=== PATIENT | female | born 1970 | race African-American/Black ===

== ENCOUNTER 2016-12-21 17:01 | Inpatient (IN) | payer MEDICAID ==
[~2016-12-21] VITALS: Ht 167.6 cm; Wt 83.9 kg
[~2016-12-21 17:01] MED LIST: IOHEXOL-300 100 ML BOTTLE ONE; SODIUM CHLORIDE 0.9% 10ML VIAL ONE
[2016-12-21] MEDS ORDERED: SODIUM CHLORIDE 0.9% 1,000 ML IV ONE (18:04)
[2016-12-21] MEDS ORDERED: ONDANSETRON HCL 4MG/2ML VIAL IV STA (18:04)
[2016-12-21] MEDS ORDERED: FAMOTIDINE 20MG/2ML VIAL IV STA (18:04)
[2016-12-21] MEDS ORDERED: MORPHINE SULFATE 4 MG/ML CPJ (NOT FOR IM USE) IV ONE (18:15)
[2016-12-21] MEDS ORDERED: LORAZEPAM 2MG/ML CPJ IV ONE (18:15)
[2016-12-21] MEDS ORDERED: MORPHINE SULFATE 4 MG/ML CPJ (NOT FOR IM USE) IV NR (18:15)
[2016-12-21] MEDS ORDERED: FOLIC ACID 1 MG, THIAMINE HCL 100 MG, MVI, ADULT NO.1 10 ML in DEXTROSE 5% WATER 1,000 ML IV ONE ×4 (18:15)
[2016-12-21] MEDS ORDERED: LORAZEPAM 2MG/ML CPJ IV NR (18:15)
[2016-12-21 18:23] LABS: BASOPHILS % 1.2 % (0.0-2.0); EOSINOPHILS % 0.1 % (0.0-5.0); HEMATOCRIT. 33.3 % (36.0-48.0); HEMOGLOBIN. 11.4 g/dL (12.0-16.0); LYMPHOCYTES % 28.5 % (20.0-50.0); MEAN CORPUSCULAR HEMOGLOBIN 30.6 pg (28.0-32.0); MEAN CORPUSCULAR VOLUME 89.2 fL (81.0-99.0); MEAN PLATELET VOLUME 9.3 fl (7.4-10.4); MONOCYTES % 19.4 % (2.0-8.0); NEUTROPHILS % 50.8 % (40.0-76.0); PLATELET 243 x1000/uL (130-400); RED BLOOD CELL COUNT 3.73 mill/uL (4.2-5.4); RED CELL DISTRIBUTION WIDTH 16.7 % (11.6-14.6)
[2016-12-21 18:24] LABS: CLARITY URINE CLEAR (CLEAR); COLOR URINE YELLOW (YELLOW); GLUCOSE URINE NEGATIVE (NEGATIVE); KETONES URINE 1+ (NEGATIVE); LEUKOCYTE ESTERASE URINE NEGATIVE (NEGATIVE); NITRITE URINE NEGATIVE (NEGATIVE); OCCULT BLOOD URINE NEGATIVE (NEGATIVE); PH URINE 6.5 (4.5-8.0); PROTEIN URINE 2+ (NEGATIVE); SPECIFIC GRAVITY URINE 1.014 (1.005-1.030); UROBILINOGEN URINE 0.2 E.U./dL (0.2-1.0)
[2016-12-21 18:30] LABS: INR 1.1; PROTHROMBIN TIME 11.4 sec
[2016-12-21 18:36] LABS: HCG SCREEN NEGATIVE
[2016-12-21 18:42] LABS: CARBON DIOXIDE 26 mEq/L (21-32); CHLORIDE 103 mEq/L (98-107); ETHANOL BLOOD 26 mg/dL; TROPONIN I < 0.02 ng/mL (0.00-0.04)
[2016-12-21] MEDS ORDERED: SODIUM CHLORIDE 0.9% 1000ML BAG (SEPSIS BOLUS) IV ONE (19:00)
[2016-12-21] MEDS ORDERED: POTASSIUM CHLORIDE 20MEQ TABLET SR PO ONE (19:00)
[2016-12-22 04:50] LABS: BASOPHILS % 0.7 % (0.0-2.0); EOSINOPHILS % 0.3 % (0.0-5.0); HEMATOCRIT. 32.5 % (36.0-48.0); HEMOGLOBIN. 10.9 g/dL (12.0-16.0); LYMPHOCYTES % 27.3 % (20.0-50.0); MEAN CORPUSCULAR HEMOGLOBIN 29.8 pg (28.0-32.0); MEAN CORPUSCULAR VOLUME 89.2 fL (81.0-99.0); MEAN PLATELET VOLUME 9.6 fl (7.4-10.4); MONOCYTES % 24.3 % (2.0-8.0); NEUTROPHILS % 47.4 % (40.0-76.0); PLATELET 222 x1000/uL (130-400); RED BLOOD CELL COUNT 3.65 mill/uL (4.2-5.4); RED CELL DISTRIBUTION WIDTH 17.3 % (11.6-14.6)
[2016-12-22 04:56] LABS: CARBON DIOXIDE 28 mEq/L (21-32); CHLORIDE 103 mEq/L (98-107)
[2016-12-22] MEDS: MORPHINE SULFATE 4 MG/ML CPJ (NOT FOR IM USE) IV PRN ×4 (07:48→23:49)
[2016-12-22] MEDS: ONDANSETRON HCL 4MG/2ML VIAL IV PRN ×4 (07:48→23:49)
[2016-12-22 20:00] VITALS: BP 149/100
[2016-12-22] MEDS ORDERED: ESCI20TA PO (20:18)
[2016-12-22] MEDS ORDERED: TRAM50TA3 PO (20:18)
[2016-12-22] MEDS ORDERED: LORA2TAB2 PO (20:18)
[2016-12-22] MEDS ORDERED: SODIUM CHLORIDE 0.9% 1,000 ML IV SCH (22:24)
[2016-12-22] MEDS ORDERED: LORAZEPAM 2MG/ML CPJ IV PRN (22:30)
[2016-12-22] MEDS ORDERED: ACETAMINOPHEN 325MG TABLET PO PRN (22:30)
[2016-12-22] MEDS ORDERED: IPRATROPIUM/ALBUTEROL 0.5-3(2.5)MG/3ML NEB INH PRN (22:30)
[2016-12-22] MEDS ORDERED: ONDANSETRON HCL 4MG/2ML VIAL IV PRN (22:30)
[2016-12-22] MEDS: NICOTINE 14MG PATCH TD SCH (22:34)
[2016-12-23] VITALS (7 sets, daily range): BP systolic 120–159; BP diastolic 73–113
[2016-12-23] MEDS ORDERED: MVI, ADULT NO.1 10 ML, FOLIC ACID 1 MG, THIAMINE HCL 100 MG in SODIUM CHLORIDE 0.9% 1,0... IV SCH ×4
[2016-12-23 06:25] LABS: HEMATOCRIT. 31.7 % (36.0-48.0); HEMOGLOBIN. 10.6 g/dL (12.0-16.0); MEAN CORPUSCULAR HEMOGLOBIN 30.4 pg (28.0-32.0); MEAN CORPUSCULAR VOLUME 90.8 fL (81.0-99.0); MEAN PLATELET VOLUME 9.8 fl (7.4-10.4); PLATELET 199 x1000/uL (130-400); RED BLOOD CELL COUNT 3.49 mill/uL (4.2-5.4); RED CELL DISTRIBUTION WIDTH 17.4 % (11.6-14.6)
[2016-12-23 06:33] LABS: CARBON DIOXIDE 24 mEq/L (21-32); CHLORIDE 104 mEq/L (98-107)
[2016-12-23] MEDS: MORPHINE SULFATE 4 MG/ML CPJ (NOT FOR IM USE) IV PRN ×3 (06:45→20:03)
[2016-12-23 07:14] LABS: *AMPHETAMINES SCREEN URINE NEGATIVE (NEGATIVE); *BARBITURATES SCREEN URINE NEGATIVE (NEGATIVE); *BENZODIAZEPINES SCREEN URINE NEGATIVE (NEGATIVE); *COCAINE SCREEN URINE NEGATIVE (NEGATIVE); CANNABINOID URINE SCREEN NEGATIVE (NEGATIVE); METHADONE URINE SCREEN NEGATIVE (NEGATIVE); OPIATES URINE SCREEN PRESUMTIVE POSITIVE (NEGATIVE); PHENCYCLIDINE URINE SCREEN NEGATIVE (NEGATIVE)
[2016-12-23] MEDS: NICOTINE 14MG PATCH TD SCH (09:00)
[2016-12-23] MEDS: ENOXAPARIN 40MG/0.4ML SYR SUBCUT SCH (09:00)
[2016-12-23] MEDS: PANTOPRAZOLE SODIUM 40 MG/VIAL IV SCH (10:36)
[2016-12-23] MEDS: SODIUM CHLORIDE 0.9% 1,000 ML IV SCH (12:03)
[2016-12-23 14:06] LABS: PLATELET ESTIMATE NORMAL
[2016-12-23] MEDS ORDERED: POTASSIUM CHLORIDE 20MEQ TABLET SR PO NR (15:00)
[2016-12-23] MEDS: SULFAMETHOXAZOLE/TRIMETHOPRIM 800/160MG TABLET PO SCH (20:03)
[2016-12-23] MEDS: METOPROLOL TARTRATE 25MG TABLET PO SCH (21:17)
[2016-12-24] VITALS: BP 119/89
[2016-12-24] MEDS: MORPHINE SULFATE 4 MG/ML CPJ (NOT FOR IM USE) IV PRN (01:51)
[2016-12-24 04:00] VITALS: BP 120/88
[2016-12-24 08:00] VITALS: BP 141/90
[2016-12-24] MEDS: SODIUM CHLORIDE 0.9% 1,000 ML IV SCH (08:39)
[2016-12-24] MEDS: SULFAMETHOXAZOLE/TRIMETHOPRIM 800/160MG TABLET PO SCH (08:40)
[2016-12-24] MEDS: PANTOPRAZOLE SODIUM 40 MG/VIAL IV SCH (08:40)
[2016-12-24] MEDS: ENOXAPARIN 40MG/0.4ML SYR SUBCUT SCH (08:45)
[2016-12-24] MEDS: METOPROLOL TARTRATE 25MG TABLET PO SCH (08:46)
[2016-12-24] MEDS: NICOTINE 14MG PATCH TD SCH (08:49)
[2016-12-24 12:00] VITALS: BP 129/96
[2016-12-24 13:50] VITALS: BP 129/96
[2016-12-24 16:00] VITALS: BP 131/95
== END 2016-12-24 18:10 | disposition home or self-care (01) | DRG 775 ==
LOC: ER 17:40 → 7WST 20:17 → EDBEDREQ 12-22 10:43 → ENRESERV 12-22 18:04 → ER 12-22 19:07
PROVIDERS: ADMIT Internal Medicine; ATTEND Internal Medicine
DX: F10.239 Alcohol dependence with withdrawal, unspecified (principal); N39.0 Urinary tract infection, site not specified; I10 Essential (primary) hypertension; F17.200 Nicotine dependence, unspecified, uncomplicated; F32.9 Major depressive disorder, single episode, unspecified; F41.9 Anxiety disorder, unspecified; Z79.899 Other long term (current) drug therapy; Y90.1 Blood alcohol level of 20-39 mg/100 ml; R00.0 Tachycardia, unspecified; F10.220 Alcohol dependence with intoxication, uncomplicated; G40.909 Epilepsy, unspecified, not intractable, without status epilepticus; Z88.1 Allergy status to other antibiotic agents; Z98.51 Tubal ligation status; E87.6 Hypokalemia
CPT/HCPCS: 36415; 71010; 74177; 80048; 80053; 80305; 81001; 83605; 83690; 84484; 84703; 85025; 85610; 87040; 87086; 93005; 96365; 96375; 96376; 99285; A4216; C9113; G0482; J1650; J2060; J2270; J2405; J3411; J3490; J7030; J7070; Q9967

== ENCOUNTER 2016-12-29 15:17 | Emergency (ER) | payer MEDICAID ==
[~2016-12-29] VITALS: Ht 172.7 cm; Wt 85.0 kg
[~2016-12-29 15:17] MED LIST changes: +ESCI20TA PO; -IOHEXOL-300 100 ML BOTTLE ONE; +LORA2TAB2 PO; -SODIUM CHLORIDE 0.9% 10ML VIAL ONE; +TRAM50TA3 PO
[2016-12-29] MEDS ORDERED: LORAZEPAM 2MG/ML CPJ IV STA (15:44)
[2016-12-29] MEDS ORDERED: SODIUM CHLORIDE 0.9% 1,000 ML IV ONE (15:44)
[2016-12-29 16:45] LABS: BASOPHILS % 0.5 % (0.0-2.0); CHLORIDE 108 mEq/L (98-107); EOSINOPHILS % 0.7 % (0.0-5.0); HEMATOCRIT. 33.8 % (36.0-48.0); HEMOGLOBIN. 11.5 g/dL (12.0-16.0); MEAN CORPUSCULAR HEMOGLOBIN 31.1 pg (28.0-32.0); MEAN CORPUSCULAR VOLUME 91.4 fL (81.0-99.0); MEAN PLATELET VOLUME 9.7 fl (7.4-10.4); MONOCYTES % 10.2 % (2.0-8.0); NEUTROPHILS % 49.6 % (40.0-76.0); PLATELET 170 x1000/uL (130-400); RED CELL DISTRIBUTION WIDTH 17.5 % (11.6-14.6)
[2016-12-29 16:49] LABS: CARBON DIOXIDE 23 mEq/L (21-32)
[2016-12-29 16:53] LABS: HCG SCREEN NEGATIVE
[2016-12-29 16:57] LABS: CLARITY URINE CLEAR (CLEAR); COLOR URINE YELLOW (YELLOW); GLUCOSE URINE NEGATIVE (NEGATIVE); KETONES URINE NEGATIVE (NEGATIVE); LEUKOCYTE ESTERASE URINE NEGATIVE (NEGATIVE); NITRITE URINE NEGATIVE (NEGATIVE); OCCULT BLOOD URINE NEGATIVE (NEGATIVE); PROTEIN URINE NEGATIVE (NEGATIVE); SPECIFIC GRAVITY URINE 1.006 (1.005-1.030); UROBILINOGEN URINE 0.2 E.U./dL (0.2-1.0)
[2016-12-29 17:08] LABS: *AMPHETAMINES SCREEN URINE NEGATIVE (NEGATIVE); *BARBITURATES SCREEN URINE NEGATIVE (NEGATIVE); *BENZODIAZEPINES SCREEN URINE NEGATIVE (NEGATIVE); *COCAINE SCREEN URINE NEGATIVE (NEGATIVE); CANNABINOID URINE SCREEN NEGATIVE (NEGATIVE); METHADONE URINE SCREEN NEGATIVE (NEGATIVE); OPIATES URINE SCREEN NEGATIVE (NEGATIVE); PHENCYCLIDINE URINE SCREEN NEGATIVE (NEGATIVE)
[2016-12-29 17:08] LABS: ETHANOL BLOOD 305 mg/dL
[2016-12-29] MEDS ORDERED: LORAZEPAM 2MG/ML CPJ IM ONE (18:45)
[2016-12-29] MEDS ORDERED: HALOPERIDOL LACTATE 5MG/ML VIAL IM ONE (18:45)
[2016-12-29] MEDS ORDERED: CLONIDINE 0.2MG TABLET PO ONE (22:45)
[2016-12-30] MEDS ORDERED: CLONIDINE 0.2MG TABLET PO ONE ×2 (02:30→11:00)
[2016-12-30] MEDS ORDERED: ONDANSETRON 4MG ODT PO ONE ×2 (06:15→11:00)
[2016-12-30] MEDS ORDERED: LORAZEPAM 1MG TABLET PO ONE (11:00)
[2016-12-30] MEDS ORDERED: ACETAMINOPHEN WITH CODEINE 300/30MG TABLET PO ONE (11:00)
[2016-12-30 16:08] VITALS: BP 115/76
== END 2016-12-30 15:55 | disposition home or self-care (01) ==
LOC: ER 15:20
DX: F10.129 Alcohol abuse with intoxication, unspecified (principal); F91.1 Conduct disorder, childhood-onset type; I44.0 Atrioventricular block, first degree; K85.90 Acute pancreatitis without necrosis or infection, unspecified; M79.7 Fibromyalgia; Y90.8 Blood alcohol level of 240 mg/100 ml or more; Z88.3 Allergy status to other anti-infective agents; Z78.1 Physical restraint status
CPT/HCPCS: 36415; 80053; 80305; 80307; 80329; 81003; 83690; 84478; 84703; 85025; 93005; 96361; 96372; 96374; 99285; G0482; J1630; J2060; Q0162; Z7610; J7030

== ENCOUNTER 2017-01-07 15:04 | Emergency (ER) | payer MEDICAID ==
[~2017-01-07] VITALS: Ht 167.6 cm; Wt 80.0 kg
[2017-01-07] MEDS ORDERED: SODIUM CHLORIDE 0.9% 1,000 ML IV ONE (15:13)
[2017-01-07] MEDS ORDERED: LORAZEPAM 2MG/ML CPJ IM ONE ×2 (15:15→16:30)
[2017-01-07] MEDS ORDERED: OLANZAPINE 10 MG/VIAL IM ONE (15:15)
[2017-01-07 17:55] LABS: BASOPHILS % 0.7 % (0.0-2.0); EOSINOPHILS % 1.1 % (0.0-5.0); HEMATOCRIT. 33.5 % (36.0-48.0); HEMOGLOBIN. 11.2 g/dL (12.0-16.0); LYMPHOCYTES % 54.6 % (20.0-50.0); MEAN CORPUSCULAR HEMOGLOBIN 30.4 pg (28.0-32.0); MEAN CORPUSCULAR VOLUME 91.3 fL (81.0-99.0); MEAN PLATELET VOLUME 9.7 fl (7.4-10.4); MONOCYTES % 6.5 % (2.0-8.0); NEUTROPHILS % 37.1 % (40.0-76.0); PLATELET 251 x1000/uL (130-400); RED BLOOD CELL COUNT 3.67 mill/uL (4.2-5.4); RED CELL DISTRIBUTION WIDTH 17.1 % (11.6-14.6)
[2017-01-07 18:01] LABS: INR 1.1; PROTHROMBIN TIME 11.2 sec
[2017-01-07 18:11] LABS: CARBON DIOXIDE 23 mEq/L (21-32); CHLORIDE 103 mEq/L (98-107); CREATINE KINASE 132 IU/L (26-192); TROPONIN I < 0.02 ng/mL (0.00-0.04)
[2017-01-07 18:12] LABS: AMMONIA 40 uMol/L (<32)
[2017-01-07 18:19] LABS: CARBAMAZEPINE < 0.5 ug/mL (4-12); ETHANOL BLOOD 344 mg/dL; PHENOBARBITAL < 2.1 ug/mL (15.0-40.0); PHENYTOIN < 0.4 ug/mL (10-20)
[2017-01-07 20:00] VITALS: BP 127/66
== END 2017-01-07 20:00 | disposition home or self-care (01) ==
LOC: ER 15:12
DX: T51.0X1A Toxic effect of ethanol, accidental (unintentional), initial encounter (principal); G92 Toxic encephalopathy; D64.9 Anemia, unspecified; M79.7 Fibromyalgia; Z87.19 Personal history of other diseases of the digestive system; Y92.59 Other trade areas as the place of occurrence of the external cause
CPT/HCPCS: 36415; 80053; 80156; 80165; 80184; 80185; 80307; 80329; 82140; 82550; 82962; 83880; 84443; 84484; 85025; 85610; 93005; 96360; 96372; 99285; G0482; J2060; J3490; J7030; Z7610

== ENCOUNTER 2017-01-10 05:35 | Emergency (ER) | payer MEDICAID ==
[~2017-01-10] VITALS: Ht 170.2 cm; Wt 91.0 kg
[2017-01-10 07:38] LABS: BASOPHILS % 0.6 % (0.0-2.0); EOSINOPHILS % 0.4 % (0.0-5.0); HEMATOCRIT. 36.8 % (36.0-48.0); HEMOGLOBIN. 12.2 g/dL (12.0-16.0); LYMPHOCYTES % 50.4 % (20.0-50.0); MEAN CORPUSCULAR VOLUME 90.2 fL (81.0-99.0); MEAN PLATELET VOLUME 8.9 fl (7.4-10.4); NEUTROPHILS % 43.6 % (40.0-76.0); PLATELET 299 x1000/uL (130-400); RED BLOOD CELL COUNT 4.08 mill/uL (4.2-5.4); RED CELL DISTRIBUTION WIDTH 17.5 % (11.6-14.6)
[2017-01-10 07:52] LABS: CARBON DIOXIDE 24 mEq/L (21-32); CHLORIDE 103 mEq/L (98-107)
[2017-01-10 07:56] LABS: ETHANOL BLOOD 370 mg/dL
[2017-01-10 09:02] VITALS: BP 131/72
== END 2017-01-10 09:11 | disposition home or self-care (01) ==
LOC: ER 05:44
DX: F10.129 Alcohol abuse with intoxication, unspecified (principal); F32.9 Major depressive disorder, single episode, unspecified; M79.7 Fibromyalgia; Z88.8 Allergy status to other drugs, medicaments and biological substances; Y90.8 Blood alcohol level of 240 mg/100 ml or more
CPT/HCPCS: 36415; 80053; 85025; 99284; G0482; Z7610

== ENCOUNTER 2019-05-05 11:08 | Emergency (ER) | payer MEDICAID ==
[~2019-05-05] VITALS: Ht 170.2 cm; Wt 114.0 kg
[2019-05-05 13:41] VITALS: BP 107/77
[2019-05-05] MEDS ORDERED: ONDANSETRON HCL 4MG/2ML INJ IV STA (14:11)
[2019-05-05] MEDS ORDERED: KETOROLAC 30MG/ML VIAL IV STA (14:11)
[2019-05-05 14:34] LABS: BASOPHILS % 0.4 % (0.0-2.0); EOSINOPHILS % 0.9 % (0.0-5.0); HEMATOCRIT. 33.2 % (36.0-48.0); HEMOGLOBIN. 10.8 g/dL (12.0-16.0); MEAN CORPUSCULAR HEMOGLOBIN 27.5 pg (28.0-32.0); MEAN CORPUSCULAR VOLUME 84.4 fL (81.0-99.0); MEAN PLATELET VOLUME 8.9 fl (7.4-10.4); MONOCYTES % 9.9 % (2.0-8.0); NEUTROPHILS % 52.8 % (40.0-76.0); PLATELET 157 x1000/uL (130-400); RED BLOOD CELL COUNT 3.94 mill/uL (4.2-5.4); RED CELL DISTRIBUTION WIDTH 24.1 % (11.6-14.6)
[2019-05-05 14:40] LABS: CHLORIDE 105 mEq/L (98-107); PROTHROMBIN TIME 9.8 sec (9.6-11.0)
[2019-05-05 14:44] LABS: ETHANOL BLOOD 258 mg/dL
[2019-05-05 14:50] LABS: PLATELET ESTIMATE NORMAL
[2019-05-05 15:46] LABS: HCG SCREEN NEGATIVE
== END 2019-05-05 15:54 | disposition home or self-care (01) ==
LOC: ER 11:08
DX: F10.129 Alcohol abuse with intoxication, unspecified (principal); Y90.8 Blood alcohol level of 240 mg/100 ml or more; F32.9 Major depressive disorder, single episode, unspecified; M79.7 Fibromyalgia; F17.200 Nicotine dependence, unspecified, uncomplicated; Z88.3 Allergy status to other anti-infective agents
CPT/HCPCS: 36415; 80053; 80320; 83690; 84703; 85025; 85610; 96374; 96375; 99283; J1885; J2405; G0480